=== PATIENT | female | born 1995 | race Caucasian/White ===

== ENCOUNTER → 2024-08-25 | Outpatient (CLI) | payer BC, SELFPAY ==
--- NOTE | 2024-08-25 10:21 | XR_ITS ---
Examination: PA lateral chest 2 views TECHNIQUE: Upright PA lateral chest 2 views Exam date and time: August 25, 2024 1132 hours INDICATIONS: Coughing fever vomiting headache beginning 2 days ago. FINDINGS: Normal heart size Lungs are clear. Mild osteopenia IMPRESSION: No pneumonia identified
== END | disposition home or self-care (01) ==
LOC: CDIM 09:59
PROVIDERS: PCP Family Medicine; Referring Provider Nurse Practitioner Family; Visit Provider Nurse Practitioner Family
DX: R05.9 Cough, unspecified (principal)
CPT/HCPCS: 71046

== ENCOUNTER 2024-12-15 11:45 | Day surgery (SDC) | payer BC, SELFPAY ==
[2024-12-14 07:38] VITALS: BMI 30.7
[2024-12-14 10:45] LABS: HCG Qualitative,Urine Negative
[2024-12-15] VITALS (7 sets, daily range): BP systolic 125–139; BP diastolic 75–97; PULSE 60–76; RESP 12–20; TEMP 36.4–36.7; O2SAT 96–99; BMI 30.7
[2024-12-15] MEDS: OXYMETAZOLINE NAS SPRY 0.05% 15 ML BTL NASAL (13:18)
[2024-12-15] MEDS: RINGERS LACTATED 1000 ML 1,000 ML 20 ML IV (13:19)
--- NOTE | 2024-12-15 14:32 | ESOP_ITS ---
Date of Procedure 12/15/24 Pre Op Diagnosis Nasal septal deviation with obstruction Bilateral inferior turbinate hypertrophy Chronic right sphenoid sinusitis Post Op Diagnosis Nasal septal deviation with obstruction Bilateral inferior turbinate hypertrophy Chronic right sphenoid sinusitis Procedure Intranasal septoplasty Bilateral submucous resection of the inferior turbinates Endoscopic balloon dilation of the right sphenoid sinus Findings Severe septal deviation to the right side involving both cartilage and bony septum. There is a large spur posteriorly and inferiorly. Inferior turbinates were enlarged and the right sphenoid sinus ostia was stenotic. Procedure Description Indications: This is a 29-year-old female with above findings refractory to medical therapy. Treatment options were discussed as well as surgical risks including bleeding infection nasal deformity and potential need for further surgery. She understood this and wished to proceed. Anticipated outcomes were discussed as well. Patient was transferred to the operative suite where she was anesthetized and intubated per LMA. Patient was sterilely draped and a timeout performed. The nasal septum as well as the inferior turbinates were injected with 1% lidocaine with 1 100,000 dilution epinephrine. Approximately 5 cc total were used. Caudal rim incision was made on the left side of the septum mucosal flap carefully elevated off the septal cartilage and bone. Small tear did occur anteriorly over the cartilaginous septum. The perpendicular plate was from the quadrangular cartilage and mucosal flap elevated off the right side. A tear did occur posteriorly over the spurring on the left side. This tear was used to help remove the bony portion of the septum and vomer posteriorly that were deviated with a large spur present. Tear did expand some posteriorly and inferiorly. Once the deviated portion of the bony septum was removed there was still some cartilaginous flaring to the right side inferiorly. Leaving a strong anterior and superior strut in place this was trimmed with the cartilage knife and left in place. The cartilage was fractured in multiple places from old injuries, I was trying to leave as much cartilage and as possible for stability purposes. The caudal rim incision was closed with a 4-0 plain gut suture. The inferior turbinates reduced in a submucosal plane with a 2.9 mm turbinate shaver blade. Dissection was performed on insertion and withdrawal. Under endoscopic visualization the right sphenoid sinus was located and expanded with the 6 mm [place] balloon. The balloon was then withdrawn and there was mild oozing present but nothing major. Caceres splints were trimmed and then coated with ant ibiotic ointment and inserted and sutured in place with a 3-0 silk suture. Patient was awakened and taken the recovery room in stable condition Anesthesia other (General Per LMA) Pathology / specimen None Estimated Blood Loss 15 Surgeon Pierce Sotelo DO Surgical Staff Operation Date: 12/15/24 14:45 Case Staff Anesthesiologist: Kemal Matute
--- NOTE | 2024-12-15 14:37 | SUR.PHASEI ---
1437: Pt. AAOx4, vitals stable, breathing unlabored, no complaint of pain or nausea, dressing below nose CDI, no active bleed noted, report received from Rigoberto LOUIS, Flor LOUIS, and MD Matute.
[2024-12-15] MEDS: fentaNYL CIT INJ 50 mCg/ML AMP 2ML 25 MCG IV (15:01)
--- NOTE | 2024-12-15 15:37 | SUR.PHASEII ---
1537: Pt. AAOx4, vitals stable, breathing unlabored, no complaint of pain or nausea, dressing under nose CDI, no active bleed noted, pt. tolerated sips of water well, pt. ambulated to wheelchair with steady gait and no assist, no complications. Gave discharge instructions to the pt. and her ride both verbalized understanding and had no further questions. Pt. left with all personal belongings.
== END 2024-12-15 15:37 | disposition home or self-care (01) ==
PROVIDERS: Referring Provider Otolaryngology; Visit Provider Otolaryngology
PROC: (CPT 30520; principal; 2024-12-15 14:30)
DX: J34.2 Deviated nasal septum (principal); J32.3 Chronic sphenoidal sinusitis; J34.3 Hypertrophy of nasal turbinates
CPT/HCPCS: 30520; 30140; 31287; 81025; A4217; A4649; J0131; J0690; J1100; J2250; J2405; J2704; J3010; J3490; J7040; J7120; A9270